=== PATIENT | female | born 1935 | race American Indian/Alaskan Native ===

== ENCOUNTER 2021-12-01 08:12 | Day surgery (SDC) | payer OTHER ==
[~2021-12-01 08:12] MED LIST: SODIUM CHLORIDE 0.9% 1000 ML 1,000 ML IV SCH
--- NOTE | 2021-12-01 09:29 | Anesthesia Day of Surgery ---
Anesthesia Day of Surgery - Day of Surgery Patient Examined: Yes Patient H&P Reviewed: Yes Patient is NPO: Yes
--- NOTE | 2021-12-01 09:29 | Anesthesia Consultation ---
Anesthesia Consult and Med Hx Date of service: 12/01/21 - Airway Anesthetic Teeth Evaluation: Poor (multiple missing teeth) ROM Head & Neck: Adequate Mallampati Class: Class II Intubation Access Assessment: Probably Good - Pre-Operative Health Status ASA Pre-Surgery Classification: ASA3 Proposed Anesthetic Plan: MAC - Cardiovascular System Hx Hypertension: Yes Hx Peripheral Vascular Disease: Yes (left lower extremity is swollen) - Central Nervous System Hx Psychiatric Problems: Yes (depression/anxiety) - Endocrine Hx Hypothyroidism: Yes - Other Systems Hx Cancer: Yes (h/o rectal CA, s/p rectal surgety, chemo, radiation (2020))
[2021-12-01] MEDS ORDERED: LIDOCAINE MPF (2%) 20 MG/1 ML VIAL 5 ML ONE (10:24)
[2021-12-01] MEDS ORDERED: propofoL 200 MG/20 ML VIAL IV ONE ×2 (10:24→11:02)
--- NOTE | 2021-12-01 11:19 | Operative Report ---
Operative Report Operative Report: DOS: 12/01/21 SURGEON: Bernardo Polo MD COLONOSCOPY REPORT PREOPERATIVE AND POSTOPERATIVE DIAGNOSIS: Personal history colon cancer DESCRIPTION OF PROCEDURE: The colonoscope was passed to the cecum as identified by the ileocecal valve and appendiceal orifice. Scope was carefully withdrawn. Retroflexion was performed in the rectum. At the end of procedure, the scope was cleaned using normal technique. Vital signs monitored continuously throughout. Procedure was difficult due to limited prep and extensive looping SEDATION: Provided by [facility]. Quality of the prep was poor COMPLICATIONS: None. ESTIMATED BLOOD LOSS: None FINDINGS: * Significant amount of semiliquid and solid stool throughout the colon interfering with visualization. * Few scattered diverticula in the left colon * No large lesions found * Digital rectal exam notable for nodular mucosa. On endoscopic evaluation def ormed rectum was seen consistent with patient's history of prior surgery in this location no malignant appearing mucosa seen no dysplastic appearing mucosa seen RECOMMENDATIONS: * No large lesion seen. Given patient's age and no large colorectal lesion seen on today's exam patient does not need any further colonoscopies for routine surveillance purposes
[2021-12-01 13:52] VITALS: BP 115/61
--- NOTE | 2021-12-01 15:14 | Post Anesthesia Evaluation ---
- Post Anesthesia Evaluation Patient Participated: Yes Airway Patent: Yes Stable Respiratory Function: Yes Nausea/Vomiting: No Temp > 96.8F: Yes Pain Manageable: Yes Adequeate Hydration: Yes Anesthesia Complications: No
== END 2021-12-01 11:50 | disposition home or self-care (01) ==
LOC: GIO 08:12
PROVIDERS: ATTEND Student in an Organized Health Care Education/Training Program
DX: Z12.11 Encounter for screening for malignant neoplasm of colon (principal); K57.30 Diverticulosis of large intestine without perforation or abscess without bleeding; I10 Essential (primary) hypertension; I73.9 Peripheral vascular disease, unspecified; E03.9 Hypothyroidism, unspecified; F32.9 Major depressive disorder, single episode, unspecified; F41.9 Anxiety disorder, unspecified; Z86.010 Personal history of colon polyps; Z98.890 Other specified postprocedural states; Z85.048 Personal history of other malignant neoplasm of rectum, rectosigmoid junction, and anus
CPT/HCPCS: 45378; J2704; J3490; J7030; J7120; Q0162